=== PATIENT | male | born 2000 | race Asian ===

== ENCOUNTER 2022-08-12 18:19 | Emergency (ER) | payer BC, SELFPAY ==
[2022-08-12 18:23] VITALS: BP 118/75; PULSE 74; RESP 18; TEMP 36.7; O2SAT 98; BMI 23.4
--- NOTE | 2022-08-12 19:34 | ED.GENADULT ---
HPI - General Adult General Chief complaint: Abdominal Pain Stated complaint: Anal fissures or hemeroids Time Seen by Provider: 08/12/22 18:23 History of Present Illness HPI narrative: 22-year-old young woman seen initially in urgent care with concern of rectal bleeding directed to the emergency department for further evaluation. She has been having trouble with spotting of blood intermittently over the last 3 weeks following anal intercourse. There was nothing unusual about this intercourse other than it does not sound in though this is something that is occurring regularly, it was not aggressive. She has engaged in this in the past. Today though had a harder stool and had or larger puddle of blood on tissue and became concerned. She is having a little soreness in her low abdomen. Does not describe dysuria or frequency. Is not feeling lightheaded. Some of the abdominal discomfort she is also attributing to being hungry. She has not had a fever. Other than the blood, no unusual discharge. Does not know if she has hemorrhoids. Related Data Home Medications Medication Instructions Recorded Confirmed dextroamphetamine-amphetamine 5 mg tab PO 08/12/22 08/12/22 tablet estradiol 2 mg tablet 2 mg PO BID 08/12/22 08/12/22 histrelin 50 mg (65 mcg/day) ea subcut 08/12/22 08/12/22 implant kit (Supprelin LA) insulin aspart U-100 continuous subcutaneous infusion 08/12/22 08/12/22 medroxyprogesterone 10 mg tablet 10 mg PO 08/12/22 08/12/22 methylphenidate HCl 27 mg 27 mg PO DAILY 08/12/22 08/12/22 tablet,extended release 24 hr ondansetron 4 mg disintegrating 4 mg PO 08/12/22 08/12/22 tablet progesterone micronized 100 mg 100 mg PO 08/12/22 08/12/22 capsule Allergies Allergy/AdvReac Type Severity Reaction Status Date / Time No Known Drug Allergies Allergy Verified 08/12/22 18:31 Review of Systems Status of ROS: Reports: 6 or more systems reviewed and unremarkable except as noted in History and below [facility] Social History Smoking Status: Never smoker How often do you have a drink containing alcohol: never AUDIT-C Alcohol total score: 0 Non-prescribed substance use: denies use service: No Exam Narrative: Exam Narrative: Pleasant. NAD. Calm. Hair is dyed green and yellow. Skin is warm and dry. Cardiovascular with regular rate and rhythm, no murmur rub or gallop. Is breathing easily. Abdomen with normoactive bowel sounds is soft. No peritoneal signs. She is mildly tender supraumbilically. Moving all extremities out difficulty, transitioning in the bed does not appear to cause excessive pain. Discuss options of care, overall reassured. I offer anoscopy exam is she has never had this evaluated before. She would like to proceed with this. We do this with a marbleizing machine tender. Careful insertion of clear anoscope produces tenderness. She describes a burning. Seems most discomfort is concentrated in the 9 o'clock position. At 6:00 a.m. and 12:00 p.m. there are small noninflamed tacks of tissue. Adjacent to the 12 o'clock position is a small dimple. The rectal mucosa is mildly erythematous and there is slight oozing of blood at the distal aspect of anoscope. Const: Vital Signs, click to edit/add: Vital Signs - 24 hr 08/12/22 18:23 Temperature 98.1 F Pulse Rate [Left P ulse Oximeter] 74 Respiratory Rate 18 Blood Pressure [Ri ght Upper Arm] 118/75 Pulse Oximetry 98 Oxygen Delivery Me thod Room Air Documenting provider has reviewed patient's vital signs: yes Course Course Hospital Course: As above. Given sandwich and soda during her time here. Vital Signs Vital signs: Initial Vital Signs Temperature 98.1 F 08/12/22 18:23 Temperature Source Temporal Artery Scan 08/12/22 18:23 Pulse Rate 74 08/12/22 18:23 Respiratory Rate 18 08/12/22 18:23 Blood Pressure 118/75 08/12/22 18:23 Blood Pressure Mean 89 08/12/22 18:23 Blood Pressure Position Sitting 08/12/22 18:23 Pulse Oximetry 98 08/12/22 18:23 Oxygen Delivery Method 08/12/22 18:23 Vital Signs Temperature 98.1 F 08/12/22 18:23 Pulse Rate 74 08/12/22 18:23 Respiratory Rate 18 08/12/22 18:23 Blood Pressure 118/75 08/12/22 18:23 Pulse Oximetry 98 11/09/22 18:23 Oxygen Delivery Method 08/12/22 18:23 Temperature 98.1 F 08/12/22 18:23 Pulse Rate 74 08/12/22 18:23 Respiratory Rate 18 08/12/22 18:23 Blood Pressure 118/75 08/12/22 18:23 Pulse Oximetry 98 08/12/22 18:23 Oxygen Delivery Method 08/12/22 18:23 Medical Decision Making MDM Narrative Medical decision making narrative: It appears that there might be a small anal fissure. Likely this hard stool irritated tissues that had just been healing. There is also some mild inflammation generally of the rectal tissue. Discussed this taking great care with anal intercourse. This may be something that she has to do more regularly or very carefully or just not at all. Definitely needs to keep stool soft. Discharge Plan Discharge Clinical Impression: Bright red rectal bleeding, Fissure in ano Patient Disposition: Home, Self-Care Condition: Stable Additional Instructions: Stay well hydrated. Do your best to keep stool soft and not formed, increasing fiber and free water in your diet. Might even add MiraLax equivalent 1-2 times daily adjusting to stool consistency to over the next 3 or 4 weeks. For temporary relief of discomfort might try witch stella pads or witch stella liquid on cotton balls; hemorrhoidal-type cream containing hydrocortisone and lidocaine is also available. Given there is not much in the way of induration/swelling, might be better to use straight lidocaine or benzocaine ointment or cream avoiding hydrocortisone. This is available albeit in lower concentration with aloe vera gel. Take great care with these activities. Return for marked increase in area pain or abdominal pain, increasing and persistent bleeding. Prescriptions: No Action ondansetron 4 mg tablet,disintegrating 4 mg PO insulin aspart U-100 continuous subcutaneous infusion Label Comments: pump progesterone micronized 100 mg capsule 100 mg PO methylphenidate HCl 27 mg tablet extended release 24hr 27 mg PO DAILY dextroamphetamine-amphetamine 5 mg tablet PO estradiol 2 mg tablet 2 mg PO BID medroxyprogesterone 10 mg tablet 10 mg PO Supprelin LA 50 mg (65 mcg/day) kit subcut Follow Up/Referrals: Provider,Not a Local [Primary Care Provider] - Stand Alone Forms: [employer] Info Instructions
== END 2022-08-12 19:30 | disposition home or self-care (01) ==
LOC: ED 19:29
PROVIDERS: Emergency Provider Family Medicine
DX: K60.2 Anal fissure, unspecified (principal)
CPT/HCPCS: 46600; 99282; 99284

== ENCOUNTER 2022-11-28 20:16 | Outpatient (CLI) | payer BC, SELFPAY | END 2022-11-28 20:17 | disposition home or self-care (01) | LOC: AMB 12-01 11:41 | PROVIDERS: Visit Provider Family Medicine | DX: E11.649 Type 2 diabetes mellitus with hypoglycemia without coma (principal); R11.2 Nausea with vomiting, unspecified | CPT/HCPCS: A0998 ==